=== PATIENT | female | born 1945 | race Caucasian/White ===

== ENCOUNTER 2019-03-23 04:22 | Observation (INO) | payer MEDICARE ==
[2019-03-23 05:13] LABS: #Eosinphils 0.1 thou/uL (0.0-0.7); #Lymphocytes 1.6 thou/uL (1.20-3.40); #Monocytes 0.8 thou/uL (0.11-0.59); #Neutrophils 10.8 thou/uL (1.40-6.50); %Basophils 0.1 % (0.0-1.0); %Eosinophils 0.5 % (0.0-10.0); %Lymphocytes 12.2 % (21.0-51.0); %Monocytes 6.3 % (0.0-10.0); Hemoglobin 14.5 g/dL (12.0-16.0); Mean Corpuscular HGB CONC 33.3 g/dL (32.0-36.0); Mean Corpuscular Hemoglobin 31.4 pg (27.0-31.0); Mean Corpuscular Volume 94.4 fL (78.0-98.0); Mean Platelet Volume 7.5 fL (7.4-10.4); Platelet Count 228 thou/uL (130-400); RBC Distribution Width 12.4 % (11.5-14.5); White Blood Cell (WBC) Count 13.4 thou/uL (4.8-10.8)
[2019-03-23 05:19] LABS: INR-International Normal Ratio 0.9; PTT 26.1 SEC (22.9-36.1); Prothrombin Time 11.8 SEC (12.0-14.7)
[2019-03-23 05:45] LABS: ALT (SGPT) 27 U/L (8-55); AST (SGOT) 24 U/L (5-34); Albumin 4.3 g/dL (3.4-4.8); Alkaline Phosphatase 77 U/L (40-150); Anion Gap 17 mmol/L (10-20); BUN (Urea Nitrogen) 15 mg/dL (9.8-20.1); Bilirubin, Total 0.6 mg/dL (0.2-1.2); Calc. Creatinine Clearance 0 mL/min (70-130); Calcium 9.5 mg/dL (7.8-10.44); Carbon Dioxide 25 mmol/L (23-31); Chloride 104 mmol/L (98-107); Estimated GFR-MDRD 68; Glucose 165 mg/dL (83-110); Potassium 4.1 mmol/L (3.5-5.1); Protein, Total 6.3 g/dL (6.0-8.3); Sodium 142 mmol/L (136-145)
--- NOTE | 2019-03-23 07:50 | ULT ---
PRELIMINARY REPORT/[facility]/EMERGENCY AFTER HOURS PROCEDURE EXAM: US Duplex Left Lower Extremity Veins, Limited EXAM DATE/TIME: 03/23/2019 5:04 AM CLINICAL HISTORY: 73 years old, female; Pain; Edema, localized; Lower extremity, left; Leg, lower and foot TECHNIQUE: Imaging protocol: Real-time Duplex ultrasound of the Left Lower Extremity with 2-D hansen scale, color Doppler flow and spectral waveform analysis with image documentation. Limited exam focused on the left lower extremity veins. COMPARISON: No relevant prior studies available. FINDINGS: Left deep veins: Unremarkable. The common femoral, femoral, proximal profunda femoral and popliteal veins are patent without thrombus. Normal Doppler waveforms. Normal compressibility and/or augmentation response. Left superficial veins: Unremarkable. Saphenofemoral junction is patent without thrombus. Soft tissues: There is a 4.7 x 1.0 x 4.7 cm complex fluid collection posterior to the left knee suggestive of a Bakers cyst. IMPRESSION: 1. No acute left lower extremity DVT. 2. Likely left posterior knee Bakers cyst Thank you for allowing us to participate in the care of your patient. Dictated and Authenticated by: Mayito Thomas MD 03/23/2019 5:38 AM Central Time ([place] & [place]) FINAL REPORT LEFT LOWER EXTREMITY VENOUS DOPPLER ULTRASOUND: Date: 03/23/2019 COMPARISON: None. HISTORY: Edema, pain, assess for DVT. FINDINGS: I agree with the preliminary report. Left common femoral vein, greater saphenous vein, profunda femor al vein, femoral vein, popliteal vein, and posterior tibial vein are patent with no evidence for left lower extremity DVT. Posterior to the left knee medially there is a 4.7 x 1.0 x 2.7 cm mildly co mplex fluid collection suggesting a Hollis's cyst. IMPRESSION: No evidence for deep venous thrombosis of the left lower extremity. Code QA Transcribed Date/Time: 03/23/2019 8:03 AM
--- NOTE | 2019-03-23 07:54 | RAD ---
Portable frontal chest radiograph: 03/23/2019 COMPARISON: None HISTORY: Chest pain, chest tightness FINDINGS: Lungs are clear. Heart and mediastinal contours appear within normal limits. IMPRESSION: No acute findings.
[2019-03-23 08:50] VITALS: BMI 48.2
[2019-03-23 09:32] LABS: Troponin I Less than 0.010 ng/mL (< 0.028)
[2019-03-23] MEDS ORDERED: Ondansetron PF 4 MG/2 ML Vial IVP PRN (09:45)
[2019-03-23] MEDS ORDERED: Acetaminophen 325 MG TAB PO PRN (09:45)
[2019-03-23] MEDS ORDERED: Ondansetron ODT 4 MG TAB PO PRN (09:45)
[2019-03-23] MEDS ORDERED: Iopamidol 370 76% 100 ML VIAL ONE (11:08)
--- NOTE | 2019-03-23 11:32 | HP ---
PRIMARY CARE PHYSICIAN: Monroe Gorman MD CHIEF COMPLAINT: Chest pain. HISTORY OF PRESENT ILLNESS: Ms. Paul is a 73-year-old female with past medical history of hypertension and coronary artery disease, who had presented to [facility] after she experienced left-sided chest pain late last night. She states that she had gone to bed and her pain had woken her up a few times from her deep sleep. She states during the middle of the night, she had used her 's nitroglycerin, which had seemed to resolve her pain. However, shortly after taking nitroglycerin, she felt lightheaded, dizzy, and nauseous. She states that her and her family called EMS, and upon arriving, she was given aspirin and Zofran. She states that the chest pain felt more of a pressure, that had radiated to her back and up into her jaw. She states that she had used to see Dr. Hess in the past, who had a heart catheterization roughly 10 to 12 years ago, which showed about a 30% blockage, she states that this was closely followed, and she was later cleared by Dr. Hess a few years ago. She had denied any recent heart catheterization or stress test in the last three years. She did report a recent long car ride and states that she has noticed some [id number] swelling down her left lower extremities; however, a venous Doppler was performed in the ED and found to be negative for DVT at this time. She also had a portable chest x-ray, was found to be normal and so far her serial troponins are negative x2. Currently, she is lying comfortably in bed. Denies any fever, chills, headache, blurred vision, dizziness, chest pain, palpitations, shortness of breath, abdominal pain, nausea, or vomiting. REVIEW OF SYSTEMS: All other systems are reviewed and found to be negative unless mentioned in HPI. PAST MEDICAL HISTORY: Hypertension. PAST SURGICAL HISTORY: Cholecystectomy, hysterectomy, and nose surgery. SOCIAL HISTORY: The patient denies smoking, alcohol, or any illicit drug use. KNOWN ALLERGIES: Codeine, penicillins, and sulfa. CURRENT HOME MEDICATIONS: 1. Lisinopril/hydrochlorothiazide 10/12.5 mg oral daily. 2. Metoprolol 100 mg oral at bedtime. 3. Atorvastatin 80 mg oral at bedtime. 4. Aspirin 81 mg daily. PHYSICAL EXAMINATION: VITAL SIGNS: BP 161/71, pulse 67, respirations 20, temp 98.4, O2 saturation 94% on room air. GENERAL: The patient is awake, alert, and oriented x3. She is currently lying comfortably in bed and in no acute distress. Her family is at bedside. HEENT: Atraumatic, normocephalic. Pupils are round and reactive to light. Extraocular muscles intact. Moist mucous membranes noted. NECK: Soft and supple. Trachea midline. CARDIOVASCULAR: Positive S1 and S2. Regular rate and rhythm. No murmur auscultated. RESPIRATORY: Clear to auscultation bilaterally. No wheezes, rales, or rhonchi. ABDOMEN: Soft, nontender. Bowel sounds present. MUSCULOSKELETAL: Strength 5+ bilaterally. Moves all extremities equal. Pedal and radial pulses 2+ bilaterally. 1+ edema noted on the left lower extremity. NEUROLOGIC: Cranial nerves 2 through 12 grossly intact. No focal deficits noted. Speech intact and normal. Gait not assessed. SKIN: Warm, dry and intact. No rashes. No ulceration noted. PSYCHIATRIC: Good mood and affect. LABORATORY DATA: WBC 13.4, RBC 4.60, hemoglobin 14.5, hematocrit 43.4, platelets 228. PT 11.8, INR 0.9, PTT 26.1. Sodium 142, potassium 4.1, anion gap 17, BUN 15, creatinine 0.82, estimated GFR 68, glucose 165. Troponin less than 0.010 x2. DIAGNOSTIC IMAGING STUDIES: Portable chest x-ray showed no acute findings. Lower extremity Doppler showed no acute left lower extremity DVT; however, likely left posterior knee Hollis cyst noted. ASSESSMENT/PLAN: 1. Chest pain. She is currently asymptomatic at this time and pain resolved with nitroglycerin. Serial troponins were found to be negative x2, and a cardiac stress test will be ordered to rule out ACS, pending these results. Cardiology Services maybe consulted. 2. Hypertension. We will monitor her blood pressure and other vital signs closely throughout hospital course, and she will be restarted on her home regimen at this time. 3. Deep venous thrombosis and gastrointestinal prophylaxis. 4. Code status, full code. 5. Surrogate decision maker is her , Román Paul. DISPOSITION: Pending further workup and clinical findings. Job ID: [id number]
[2019-03-23 12:56] LABS: Troponin I Less than 0.010 ng/mL (< 0.028)
--- NOTE | 2019-03-23 13:05 | NM ---
Radionucleotide stress only myocardial perfusion scan with CT attenuation correction and SPECT imagin g Left ventricular wall motion evaluation and ejection fraction HISTORY: Chest pain. FINDINGS: Adenosine protocol. Slightly heterogeneous uptake of radiotracer throughout the left ventri cular myocardium. No focal perfusion defect. QGS analysis of gated SPECT images shows small focus of dyskinesis involving the distal septum. Eject ion fraction calculated at 69%. IMPRESSION: No evidence of ischemia. Small focus of distal septal dyskinesis. Normal LVEF.
--- NOTE | 2019-03-23 15:18 | CT ---
CT ANGIOGRAM THORAX WITH IV CONTRAST AND 3-D RECONSTRUCTIONS CLINICAL INDICATION: Chest pain COMPARISON: None FINDINGS: Pulmonary arteries: No filling defects are seen in the pulmonary arteries to suggest a pulmonary embo trevor. Aorta: Vascular calcifications are seen in the thoracic aorta, but the thoracic aorta is normal in ca liber without evidence of an aortic dissection. Lungs: Clear without evidence of consolidation or pleural effusion. Mediastinum: Vascular calcifications are seen in the coronary arteries. There is no evidence of lymph adenopathy. Thyroid gland: Right lobe of the thyroid gland is enlarged with suggestion of a hypodense nodule sweta uring 2.4 cm. Nonemergent thyroid ultrasound is recommended. Osseous structures: No acute process. Chest wall: No abnormality visualized. Upper abdomen: Within normal limits for phase of imaging. IMPRESSION: 1. Hypodense nodule right lobe of the thyroid gland. Thyroid ultrasound is recommended for further ev aluation. 2. No CT evidence of a pulmonary embolus. 3. Vascular calcifications in the coronary arteries and involving the thoracic aorta.
[2019-03-23] MEDS: Famotidine 20 MG TAB PO SCH (19:54)
[2019-03-23] MEDS ORDERED: Atorvastatin Calcium 40 MG TAB PO SCH (21:00)
[2019-03-24 06:24] LABS: #Basophils 0.1 thou/uL (0.0-0.2); #Eosinphils 0.1 thou/uL (0.0-0.7); #Lymphocytes 2.4 thou/uL (1.20-3.40); #Monocytes 0.5 thou/uL (0.11-0.59); #Neutrophils 3.5 thou/uL (1.40-6.50); %Basophils 1.1 % (0.0-1.0); %Eosinophils 1.1 % (0.0-10.0); %Lymphocytes 36.4 % (21.0-51.0); %Monocytes 8.2 % (0.0-10.0); %Neutrophils 53.2 % (42.0-75.0); Hemoglobin 13.5 g/dL (12.0-16.0); Mean Corpuscular HGB CONC 33.5 g/dL (32.0-36.0); Mean Corpuscular Hemoglobin 31.7 pg (27.0-31.0); Mean Corpuscular Volume 94.6 fL (78.0-98.0); Mean Platelet Volume 7.6 fL (7.4-10.4); Platelet Count 206 thou/uL (130-400); RBC Distribution Width 12.5 % (11.5-14.5); Red Blood Cell (RBC) Count 4.27 mill/uL (4.20-5.40); White Blood Cell (WBC) Count 6.6 thou/uL (4.8-10.8)
[2019-03-24 06:43] LABS: Anion Gap 12 mmol/L (10-20); BUN (Urea Nitrogen) 12 mg/dL (9.8-20.1); Calc. Creatinine Clearance 110 mL/min (70-130); Calcium 9.1 mg/dL (7.8-10.44); Carbon Dioxide 28 mmol/L (23-31); Chloride 104 mmol/L (98-107); Cholesterol 124 mg/dl (< 200 Desired); Estimated GFR-MDRD 71; Glucose 123 mg/dL (83-110); HDL Cholesterol 41 mg/dL (>60 Neg Risk); LDL Cholesterol, Calculated 60 mg/dL; Sodium 140 mmol/L (136-145); Triglycerides 114 mg/dL (Less than 150)
[2019-03-24 08:03] VITALS: BP 144/58; TEMP 98.5
[2019-03-24] MEDS: Famotidine 20 MG TAB PO SCH (08:44)
[2019-03-24] MEDS ORDERED: Enoxaparin Sodium 40 MG/0.4 ML SYRINGE SC SCH (09:00)
[2019-03-24] MEDS ORDERED: Lisinopril/Hydrochlorothiazide 10 mg/12.5 mg Tablet PO SCH (09:00)
[2019-03-24] MEDS ORDERED: Aspirin 81 mg Enteric Coated Tablet PO SCH (09:00)
--- NOTE | 2019-03-24 10:56 | PDOC.HOSPP ---
- Subjective Encounter Date: 03/24/19 Encounter Time: 10:55 Subjective: Ms. Paul was seen today in follow-up of chest pain. She does not have any new complaints. - Objective Vital Signs & Weight: Vital Signs (12 hours) Temp Pulse Resp BP BP Pulse Ox 03/24/19 08:44 58 L 144/58 H 03/24/19 07:43 98.5 F 58 L 18 144/58 H 94 L 03/24/19 04:20 97.5 F L 60 16 118/58 L 95 03/24/19 02:37 94 L Weight Weight 249 lb 14.4 oz I&O: 03/23/19 03/24/19 03/25/19 06:59 06:59 06:59 Intake Total 960 Output Total 400 Balance 560 Result Diagrams: 03/24/19 06:02 03/24/19 06:02 Hospitalist ROS - Medication Medications: Active Medications Generic Name Dose Route Start Last Admin Trade Name Freq PRN Reason Stop Dose Admin Aspirin 81 mg 03/24/19 09:00 03/24/19 08:44 Ecotrin PO 81 mg DAILY MARCELA Administration Atorvastatin Calcium 80 mg 03/23/19 21:00 03/23/19 19:54 Lipitor PO 80 mg HS MARCELA Administration Enoxaparin Sodium 40 mg 03/24/19 09:00 03/24/19 08:45 Lovenox SC 40 mg 0900 MARCELA Administration Famotidine 20 mg 03/23/19 21:00 03/24/19 08:44 Pepcid PO 20 mg BID MARCELA Administration Lisinopril/HCTZ 1 tab 03/24/19 09:00 03/24/19 08:44 Prinizide 10-12.5 PO 1 tab DAILY MARCELA Administration Metoprolol Succinate 100 mg 03/23/19 21:00 03/23/19 19:54 Toprol Xl PO 100 mg HS MARCELA Administration - Exam Eye: PERRL, anicteric sclera Heart: RRR, no murmur, no gallops, no rubs, normal peripheral pulses Respiratory: CTAB, no wheezes, no rales, no ronchi, normal chest expansion, no tachypnea, normal percussion Gastrointestinal: soft, non-tender, non-distended, normal bowel sounds, no palpable masses, no hepatomegaly, no splenomegaly Extremities: no cyanosis, no clubbing, no edema Hosp A/P (1) Chest pain Code(s): R07.9 - CHEST PAIN, UNSPECIFIED Status: Acute (2) Hypertension Code(s): I10 - ESSENTIAL (PRIMARY) HYPERTENSION Status: Chronic (3) Dyslipidemia Code(s): E78.5 - HYPERLIPIDEMIA, UNSPECIFIED Status: Acute - Plan * Chest pain- ? etiology- ischemic heart disease is not entirely ruled out * Will place her on Imdur, and follow-up with Dr. Hess as soon as possible
--- NOTE | 2019-03-25 00:11 | DIS ---
DATE OF ADMISSION: 03/23/2019 DATE OF DISCHARGE: 03/24/2019 PRIMARY CARE PHYSICIAN: Monroe Gorman MD. DISCHARGE DISPOSITION: Home. DISCHARGE DIAGNOSES: 1. Chest pain. 2. Hypertension. 3. Dyslipidemia. DISCHARGE MEDICATIONS: Include: 1. Imdur 30 mg and this is extended release p.o. daily. 2. Toprol-XL 100 mg at bedtime. 3. Lisinopril hydrochlorothiazide 10/12.5 one tablet daily. 4. Atorvastatin 80 mg at bedtime. 5. Aspirin 81 mg daily. IMAGING DONE DURING HOSPITAL STAY: She had a vascular ultrasound which was negative for DVT. She had a nuclear stress test done showing no evidence of ischemia. There was a small focus of septal dyskinesia with a normal EF. The patient had a CT angiogram of the chest showing no evidence of pulmonary embolus, but there was hypodense nodule in the right lobe of thyroid gland. CODE STATUS: Full code. ALLERGIES: TO PENICILLINS, CODEINE, AND SULFA. HOSPITAL COURSE: Ms. Paul is a pleasant 73-year-old female, who presented to the emergency room complaining of chest pain. She says it radiated around to her back and felt like a squeezing sensation. She was placed in observation. She was ruled out and nuclear stress test was obtained. There was no evidence of ischemia. This was followed up by CT angiogram of the chest, which was negative for PE. There was an incidental finding of right thyroid nodule. This report will be printed out and given to the patient, and the nodule will need to be followed up with Dr. Munoz. We will also place her on Imdur empirically and have requested that she see Dr. Hess or one of his associates and follow up as soon as possible, so that she can describe her symptoms and have further cardiology recommendations at that time. She is also to follow up with Dr. Munoz in 1 to 2 weeks. Job ID: [id number]
--- NOTE | 2019-03-30 12:36 | STRESS ---
Acquisition Time: 2019-03-23 10:38:13 Total Exercise Time: 00:04:00 Test Indications: CHEST PAIN Medications: Protocol: ADENOSINE Max HR: 080 BPM 55% of Pred: 145 BPM Max BP: 126/074 mmHG Max Work Load: 1.0 METS RESTING ECG: NORMAL SINUS RHYTHM SYMPTOMS: NONE NORMAL BP RESPONSE ECTOPY: NONE ECG STRESS: NO SIGNFICANT CHANGES INTERPRETATION: NEGATIVE ECG/AWAIT NUCLEAR IMAGES FOR DEFINITIVE DIAGNOSIS Confirmed by DR. Chapis BRITO ([id number]), script editor CHILO PRADHAN ([id number]) on 03/30/2019 12:35:44 PM Referred By: RANDAL CHACON Confirmed By:DR. Chapis BRITO
== END 2019-03-24 11:26 | disposition home or self-care (01) ==
LOC: ERS 04:22 → 2SW 08:37
PROVIDERS: ADMIT Internal Medicine; ATTEND Internal Medicine
DX: R07.2 Precordial pain (principal); I10 Essential (primary) hypertension; I25.10 Atherosclerotic heart disease of native coronary artery without angina pectoris; E78.5 Hyperlipidemia, unspecified; Z79.82 Long term (current) use of aspirin; Z79.899 Other long term (current) drug therapy; Z88.0 Allergy status to penicillin; Z88.2 Allergy status to sulfonamides; Z88.5 Allergy status to narcotic agent
CPT/HCPCS: 71045; 71275; 78452; 80048; 80053; 80061; 84484 ×2; 85025 ×2; 85379; 85610; 85730; 93017; 93971; 94760 ×2; 96372; 97139 ×2; 99285; A9500; G0378 ×3; 36415; J0153; J1650; Q9967

== ENCOUNTER 2023-08-11 14:22 | Outpatient (CLI) | payer MEDICARE | END 2023-08-11 14:23 | disposition home or self-care (01) | LOC: BICMAMMO 14:22 | PROVIDERS: ATTEND Internal Medicine Rheumatology | DX: M81.0 Age-related osteoporosis without current pathological fracture (principal); M25.561 Pain in right knee; M17.11 Unilateral primary osteoarthritis, right knee; M85.851 Other specified disorders of bone density and structure, right thigh; M85.852 Other specified disorders of bone density and structure, left thigh | CPT/HCPCS: 77080 ==

== ENCOUNTER 2023-11-17 13:01 | Outpatient (CLI) | payer MEDICARE | END 2023-11-17 13:02 | disposition home or self-care (01) | LOC: BICRAD 13:01 | PROVIDERS: ATTEND Internal Medicine Rheumatology | DX: M81.0 Age-related osteoporosis without current pathological fracture (principal); M47.814 Spondylosis without myelopathy or radiculopathy, thoracic region | CPT/HCPCS: 72070 ==